=== PATIENT | male | born 1970 | race Caucasian/White ===

== ENCOUNTER 2021-12-08 21:27 | Emergency (ER) | payer SELFPAY ==
[2021-12-08 21:52] VITALS: RESP 20; BMI 13.2
[2021-12-08 22:35] LABS: HEMATOCRIT 37.3 % (35.4-49); HEMOGLOBIN 13.3 GM/dL (11.7-16.9); LYMPH % 1.6 % (8-40); MCH 34.2 pg (25.7-33.7); MCHC 35.7 g/dl (32.0-35.9); MEAN CELL VOLUME 95.9 fl (80-96); MEAN PLT VOLUME 7.3 fl (7.5-11.1); MONO % 6.5 % (3.8-10.2); NEUT % 91.9 % (42.8-82.8); PLATELET COUNT 196 10^3/uL (134-434); RBC 3.89 M/mm3 (4.00-5.60); RDW 13.5 % (11.9-15.9)
[2021-12-08 22:56] LABS: CHLORIDE 78 mmol/L (98-107)
[2021-12-08 22:59] LABS: ALBUMIN 3.6 g/dl (3.4-5.0); CO2 27 mmol/L (21-32); GLUCOSE,RANDOM 163 mg/dL (74-106); MAGNESIUM 1.6 mg/dL (1.8-2.4)
[2021-12-08 23:02] LABS: CREATININE 0.6 mg/dL (0.55-1.3); PHOSPHOROUS 1.6 mg/dL (2.5-4.9); SGOT/AST 131 U/L (15-37); SGPT/ALT 87 U/L (13-61)
[2021-12-08 23:04] LABS: BILIRUBIN,TOTAL 1.3 mg/dL (0.2-1); TOT PROT 6.5 g/dl (6.4-8.2)
[2021-12-08 23:05] LABS: ALK PHOS 135 U/L (45-117)
[2021-12-08] MEDS ORDERED: MAGNESIUM SULF 50% (8.12 MEQ/2 ML-1 GM VIAL) IVPB ONE (23:14)
[2021-12-08] MEDS ORDERED: CALCIUM GLUCONATE 10% - 1,000 MG/10 ML VIAL IVPB ONE (23:14)
[2021-12-08] MEDS ORDERED: NAPH,MB-DB/K PH,MBDB POWDER PACKET PO ONE (23:14)
[2021-12-08 23:24] LABS: ANISOCYTOSIS 0; MACROCYTOSIS 0
[2021-12-08] MEDS ORDERED: NAPH,MB-DB/K PH,MBDB POWDER PACKET ONE (23:31)
[2021-12-08] MEDS ORDERED: MAGNESIUM SULFATE IN WATER 2 GM/50 ML IVPB IVPB ONE (23:32)
[2021-12-08 23:35] LABS: PH,URINE 7.5 (5.0-8.0); URINE APPEARANCE CLEAR; URINE BILIRUBIN NEGATIVE (NEGATIVE); URINE COLOR YELLOW; URINE GLUCOSE (UA) 1+ (NEGATIVE); URINE KETONE 1+ (NEGATIVE); URINE LEUK ESTERASE NEGATIVE (NEGATIVE); URINE NITRITE NEGATIVE (NEGATIVE); URINE PROTEIN NEGATIVE (NEGATIVE); URINE UROBILINOGEN 0.2 mg/dL (0.2-1.0)
[2021-12-08] MEDS ORDERED: SODIUM CHLORIDE 0.9% 500 ML INFUS.BAG IV ONE (23:57)
[2021-12-08 23:59] LABS: ANION GAP 13 MMOL/L (8-16); BLOOD UREA NITROGEN 1.9 mg/dL (7-18); SODIUM 118 mmol/L (136-145)
[2021-12-09] MEDS ORDERED: POTASSIUM CHLORIDE ORAL LIQUID 20 MEQ/15 ML PO ONE ×2 (00:09→04:25)
[2021-12-09] MEDS ORDERED: CALCIUM GLUC IN NACL, ISO-OSM 1 GM/50 ML BAG IVPB ONE (00:47)
[2021-12-09] MEDS ORDERED: CALCIUM GLUCONATE 10% - 1,000 MG/10 ML VIAL ONE (00:56)
[2021-12-09] MEDS ORDERED: SODIUM CHLORIDE 3% 500 ML/500 ML INFUS.BAG IV ONE (00:59)
[2021-12-09 01:28] LABS: VENOUS BASE EXCESS 2.9 mmol/L (-2-2); VENOUS O2 SATURATION 78.6 % (70-80); VENOUS PCO2 37.6 mmHg (38-52); VENOUS PH 7.466 (7.310-7.410)
[2021-12-09] MEDS ORDERED: KCL 10 MEQ IVPB 20 MEQ/200 ML INFUS.BAG IVPB ONE (02:15)
[2021-12-09] MEDS: KCL 10 MEQ IVPB 10 MEQ/100 ML INFUS.BAG IVPB SCH ×2 (02:32→05:08)
[2021-12-09 03:40] LABS: CHLORIDE 93 mmol/L (98-107); SODIUM 129 mmol/L (136-145)
[2021-12-09 03:42] LABS: ANION GAP 9 MMOL/L (8-16); CO2 28 mmol/L (21-32); GLUCOSE,RANDOM 125 mg/dL (74-106); MAGNESIUM 2.4 mg/dL (1.8-2.4)
[2021-12-09 03:46] LABS: CREATININE 0.5 mg/dL (0.55-1.3); PHOSPHOROUS 2.2 mg/dL (2.5-4.9)
[2021-12-09 04:00] LABS: BLOOD UREA NITROGEN 1.6 mg/dL (7-18)
[2021-12-09] MEDS: POTASSIUM CHLORIDE 20 MEQ PREMIX IVPB 100 ML IVPB SCH (04:15)
[2021-12-09 07:02] VITALS: BP 102/75
[2021-12-09 07:14] VITALS: TEMP 98.5
[2021-12-09 08:26] VITALS: PULSE 67
== END 2021-12-09 11:00 | disposition short-term general hospital (02) ==
LOC: JER 21:27
PROC: 3E033GC Introduction of Other Therapeutic Substance into Peripheral Vein, Percutaneous Approach (ICD-10-PCS; principal; 2021-12-08)
DX: R42 Dizziness and giddiness (principal); R64 Cachexia; R11.2 Nausea with vomiting, unspecified; E83.42 Hypomagnesemia; E83.51 Hypocalcemia; E87.1 Hypo-osmolality and hyponatremia; E87.6 Hypokalemia
CPT/HCPCS: 36415; 71046-TC-FY; 80048; 80053; 81003; 82550; 82553; 82803; 82962; 83735; 84100; 84484; 85025; 87086; 93005; 93010; 99285-25; C9803-CS; U0003; U0005